=== PATIENT | male | born 1960 | race Caucasian/White ===

== ENCOUNTER → 2017-03-22 | Outpatient (CLI) | payer BC | END | disposition home or self-care (01) | LOC: LABWHC1 10:58 | PROVIDERS: ATTEND Urology | DX: C61 Malignant neoplasm of prostate (principal) | CPT/HCPCS: 36415; 84153 ==

== ENCOUNTER 2017-04-21 21:17 | Emergency (ER) | payer BC ==
[~2017-04-21 21:17] MED LIST: SODIUM CHLORIDE 0.9% 1,000 ML BAG ONE
[2017-04-21] MEDS ORDERED: TAMSULOSIN 0.4 MG CAP.ER.24H PO ONE (23:30)
[2017-04-21] MEDS ORDERED: KETOROLAC 30 MG/ML 1 ML VIAL ONE (23:30)
--- NOTE | 2017-04-22 16:31 | XR ---
Exam: Abdomen single view COMPARISON: April 21, 2017 HISTORY: Abdominal pain. FINDINGS: Moderate amount stool is noted in the ascending colon. There is no evidence of impaction or obstructi on. There is no definite free intraperitoneal air. A nonspecific bowel gas pattern is noted. IMPRESSION: Nonspecific nonobstructive bowel gas pattern.
[2017-04-22 17:12] LABS: Appearance,Urine Clear (Clear); Bilirubin,Urine Negative (Negative); Blood,Urine Negative (Negative); Color,Urine Brown; Glucose,Urine (UA) Negative (Negative); Ketones,Urine Negative (Negative); Leukocyte Esterase,Urine Negative (Negative); Nitrite,Urine Negative (Negative); Protein,Urine Negative (Negative); Specific Gravity,Urine 1.003 (1.001-1.035); Urobilinogen,Urine <2.0 mg/dL (<2.0)
[2017-04-22 17:17] LABS: ALT 63 U/L (21-72); AST 34 U/L (17-59); Albumin 3.8 g/dL (3.5-5.0); Alkaline Phosphatase 71 U/L (38-126); Anion Gap 9 mmol/L; Blood Urea Nitrogen 18 mg/dL (9-20); Calcium 9.3 mg/dL (8.4-10.2); Carbon Dioxide 25 mmol/L (22-30); Chloride 106 mmol/L (98-107); Glucose 107 mg/dL (74-99); Sodium 140 mmol/L (137-145); Total Bilirubin 0.5 mg/dL (0.2-1.3); Total Protein 6.2 g/dL (6.3-8.2)
[2017-04-22 17:28] LABS: Basophils # (A) 0.1 k/uL (0-0.2); Basophils % (A) 1 %; Eosinophils # (A) 0.4 k/uL (0-0.7); Eosinophils % (A) 7 %; HCT 44.9 % (39.0-53.0); HGB 15.2 gm/dL (13.0-17.5); Lymphocytes # (A) 1.9 k/uL (1.0-4.8); Lymphocytes % (A) 30 %; MCH 30.6 pg (25.0-35.0); MCV 90.2 fL (80.0-100.0); Monocytes # (A) 0.3 k/uL (0-1.0); Monocytes % (A) 5 %; Neutrophils # (A) 3.5 k/uL (1.3-7.7); Neutrophils % (A) 56 %; Platelet Count 132 k/uL (150-450); RBC 4.98 m/uL (4.30-5.90); RDW 12.9 % (11.5-15.5); WBC 6.3 k/uL (3.8-10.6)
== END 2017-04-22 01:40 | disposition home or self-care (01) ==
LOC: EC 21:17
DX: N20.0 Calculus of kidney (principal); Z79.899 Other long term (current) drug therapy; Z86.69 Personal history of other diseases of the nervous system and sense organs; Z90.79 Acquired absence of other genital organ(s)
CPT/HCPCS: 99284; 96374; 36415; 80053; 85025; 81003; 74000; J1885